=== PATIENT | male | born 1970 | race Caucasian/White ===

== ENCOUNTER 2017-03-10 21:42 | Emergency (ER) | payer BC ==
[2017-03-10 21:51] VITALS: BP 119/67
[2017-03-10] MEDS ORDERED: diPHENhydraMINE PO* 50 MG PO ONE (21:53)
[2017-03-10] MEDS ORDERED: predniSONE TAB* 20 MG PO ONE (21:53)
--- NOTE | 2017-03-10 21:53 | UC ---
Skin Complaint HPI - HPI Summary HPI Summary: Bee sting right forearm--24 hours of swelling hand and forearm,very itchy - History of Current Complaint Chief Complaint: UCAllergicReaction Time Seen by Provider: 03/10/17 21:46 Stated Complaint: BEE STING Hx Obtained From: Patient Onset/Duration: Sudden Onset, Lasting Days - 1 Skin Exposure Onset/Duration: Days Ago - 1 Timing: Constant Onset Severity: Moderate Current Severity: Moderate Location: Discrete - distal forearm Character: Swelling, Pruritus Aggravating Factor(s): Nothing Alleviating Factor(s): Nothing Associated Signs & Symptoms: Positive: Negative Related History: Insect Bite/Sting - Allergy/Home Medications Allergies/Adverse Reactions: Allergies Allergy/AdvReac Type Severity Reaction Status Date / Time Penicillins Allergy Unknown Unknown Verified 03/10/17 21:51 Reaction Details Review of Systems Constitutional: Negative Skin: Other - swollen hand and distal forearm (R) Eyes: Negative ENT: Negative Respiratory: Negative Cardiovascular: Negative Gastrointestinal: Negative Genitourinary: Negative Motor: Negative Neurovascular: Negative Musculoskeletal: Negative Neurological: Negative Psychological: Negative Is Patient Immunocompromised?: No All Other Systems Reviewed And Are Negative: Yes PMH/Surg Hx/FS Hx/Imm Hx Previously Healthy: Yes - Surgical History Surgical History: Yes Surgery Procedure, Year, and Place: HERNIA REPAIR - Family History Known Family History: Positive: None - Social History Occupation: Employed Full-time Lives: With Family Alcohol Use: Occasionally Alcohol Amount: 6-PACK A WEEK Substance Use Type: None Smoking Status (MU): Never Smoked Tobacco Physical Exam Triage Information Reviewed: Yes Appearance: Well-Appearing, No Pain Distress, Well-Nourished Vital Signs: Initial Vital Signs Temp 97.8 F 03/10/17 21:46 Pulse 74 03/10/17 21:46 Resp 16 03/10/17 21:46 BP 119/67 03/10/17 21:46 Vital Signs Reviewed: Yes Eye Exam: Normal Eyes: Positive: Conjunctiva Clear ENT Exam: Normal ENT: Positive: Normal ENT inspection, Hearing grossly normal. Negative: Nasal congestion, Nasal drainage, Trismus, Muffled/hoarse voice Dental Exam: Normal Neck exam: Normal Neck: Positive: Supple, Nontender, No Lymphadenopathy Respiratory Exam: Normal Respiratory: Positive: Chest non-tender, No respiratory distress, No accessory muscle use Cardiovascular Exam: Normal Cardiovascular: Positive: Pulses Normal, Brisk Capillary Refill Musculoskeletal Exam: Normal Musculoskeletal: Positive: Strength Intact, ROM Intact, Edema @ - distal right arm and hand Neurological Exam: Normal Neurological: Positive: Alert, Muscle Tone Normal Psychological Exam: Normal Skin Exam: Normal Course/Dx - Course Course Of Treatment: Benadryl, prednisone, ice elevation, follow with pcp prn - Differential Diagnoses - Skin Complaint Differential Diagnoses: Angioedema, Cellulitis, Local Allergic Reaction - Diagnoses Provider Diagnoses: Local reaction to Bee Sting Discharge - Discharge Plan Condition: Stable Disposition: HOME Prescriptions: predniSONE TAB* [Deltasone TAB*] 50 mg PO DAILY #4 tab Patient Education Materials: Insect Bite or Sting (ED), Diphenhydramine (By mouth), Ice Pack Application (ED) Referrals: Samuel Campos CISCO ENGINEER [Primary Care Provider] - If Needed
== END 2017-03-10 22:07 | disposition home or self-care (01) ==
LOC: UCEAST 21:42
DX: T63.441A Toxic effect of venom of bees, accidental (unintentional), initial encounter (principal); M79.89 Other specified soft tissue disorders; L29.9 Pruritus, unspecified; Y92.9 Unspecified place or not applicable; Z88.0 Allergy status to penicillin
CPT/HCPCS: 99212; A9270-GY; G0463; J7512

== ENCOUNTER 2017-03-15 08:17 | Emergency (ER) | payer BC ==
[2017-03-15] MEDS ORDERED: Meclizine TAB* 12.5 MG PO ONE (08:59)
[2017-03-15] MEDS ORDERED: Ondansetron INJ* 2 MG/ML VIAL IV ONE (08:59)
[2017-03-15 09:23] LABS: Hematocrit 43 % (42-52); Hemoglobin 14.7 g/dl (14.0-18.0); Mean Corpuscular HGB Conc 34 g/dl (31-36); Mean Corpuscular Hemoglobin 33 pg (27-31); Mean Corpuscular Volume 95 fL (80-94); Mean Platelet Volume 9 um3 (7.4-10.4); Red Blood Count 4.53 10^6/ul (4.0-5.4); Red Cell Distribution Width 13 % (10.5-15); White Blood Count 8.1 10^3/ul (3.5-10.8)
[2017-03-15 09:35] LABS: Albumin 4.2 g/dL (3.2-5.2); BUN/Creatinine Ratio 18.6 (8-20); Calcium 9.2 mg/dL (8.6-10.3); EGFR African American 106.7 (>60); Globulin 2.4 g/dL (2-4); Magnesium 2.2 mg/dL (1.9-2.7); Potassium 3.8 mmol/L (3.5-5.0); Total Bilirubin 0.7 mg/dL (0.2-1.0); Total Protein 6.6 g/dL (6.4-8.9)
[2017-03-15 10:04] LABS: TSH (Thyroid Stimulating Horm) 1.7 mcIU/mL (0.34-5.60)
[2017-03-15] MEDS ORDERED: LORazepam INJ* 2 MG/ML 1 ML VIAL IV ONE (11:18)
--- NOTE | 2017-03-15 13:48 | RAD ---
Indication: Vertigo. Dizziness and nausea. Toxic exposure. Comparison: No relevant prior exams available on the [facility] for comparison. Technique: Noncontrast CT vertex of skull through foramen magnum. Report: The sulci, ventricles, and basal cisterns are normal for age. Conte matter white matter differentiation is preserved without evidence for edema. No intra or extra axial hemorrhage, mass, or fluid collection detected. Unremarkable visualized orbital contents. Unremarkable calvarium and skull base. Unremarkable scalp. The visualized paranasal sinuses and mastoid air spaces are clear. IMPRESSION: Negative unenhanced head CT.
--- NOTE | 2017-03-15 16:08 | RAD ---
Indication: Dizziness that started this morning. On prednisone subsequent to a bee sting. Comparison: CT of the same date Technique: ViewsIQa 1.5 Queenie AN199F with GEM suite. MRI brain without contrast. Report: Diffusion series is negative for acute or subacute ischemia. Susceptibility series is negative for stigmata of hemosiderin deposition to indicate previous hemorrhage. Unremarkable cerebral sulci, ventricles, and basal cisterns. Normal patterns of signal intensity throughout the cerebrum and posterior fossa. No intra or extra-axial lesions or fluid collections evident. Preserved major intracranial flow-voids. Unremarkable orbital contents. No calvarial or skull base lesion evident. Clear paranasal sinuses and mastoid air spaces. The membranous labyrinths appear unremarkable and grossly symmetric within limits of routine MRI. No suspicious scalp lesion evident. Mild signal artifact noted at the level of the RIGHT cheek superficial to the zygomatic arch. IMPRESSION: Negative unenhanced MRI of the brain.
--- NOTE | 2017-03-15 17:05 | ED ---
Kassy Iqbal Thomas, scribed for Srinivas Gomez MD on 03/15/17 at 0849 . Dizziness - HPI Summary HPI Summary: The pt is a 46 y/o M presenting to the ED c/o dizziness that began this AM at around 07:00. The dizziness is constant. The dizziness is aggravated by moving. It is alleviated by nothing. Pt additionally c/o nausea. Pt denies tinnitus. The patient was moving some 7 dust pesticide this AM. The patient is currently on a course of prednisone for an allergic reaction to a bee sting five days ago. PMHx: previously healthy. PSHx: hernia repair. SHx: no smoking, occasional alcohol, no illicit drug use. FHx: DM, HTN. - History Of Current Complaint Chief Complaint: EDDizziness Stated Complaint: DIZZY Time Seen by Provider: 03/15/17 08:41 Hx Obtained From: Patient Onset/Duration: Still Present - onset today at 07:00 Timing: Constant Aggravating Factor(s): Other - Movement Alleviating Factor(s): Nothing Associated Signs And Symptoms: Positive: Nausea. Negative: Tinnitus - Allergies/Home Medications Allergies/Adverse Reactions: Allergies Allergy/AdvReac Type Severity Reaction Status Date / Time Penicillins Allergy Unknown Unknown Verified 03/15/17 08:32 Reaction Details PMH/Surg Hx/FS Hx/Imm Hx Previously Healthy: No Endocrine/Hematology History: Denies: Hx Bone Marrow Disease, Hx Diabetes, Hx Sickle Cell Disease, Hx Thyroid Disease, Hx Anemia Cardiovascular History: Denies: Hx Congestive Heart Failure, Hx Coronary Artery Disease, Hx Hypertension, Hx Pacemaker/ICD, Hx Peripheral Vascular Disease, Hx Valvular Heart Disease, Other Cardiovascular Problems/Disorders Respiratory History: Denies: Hx Asthma, Hx Sleep Apnea - evaluation for 05/2013-CAME BACK NEGATIVE, Other Respiratory Problems/Disorders GI History: Denies: Hx Cirrhosis, Hx Crohn's Disease, Hx Gastroesophageal Reflux Disease , Hx Irritable Bowel, Other GI Disorders History: Denies: Hx Kidney Infection, Hx Kidney Stones, Hx Renal Disease, Other Problems/Disorders Musculoskeletal History: Reports: Hx Back Problems Denies: Hx Arthritis, Hx Bursitis, Hx Tendonitis Sensory History: Denies: Hx Contacts or Glasses, Hx Hearing Aid Opthamlomology History: Denies: Hx Contacts or Glasses Neurological History: Denies: Hx Headaches, Hx Migraine, Hx Nerve Disease, Hx Seizures, Other Neuro Impairments/Disorders Psychiatric History: Denies: Hx Anxiety, Hx Depression, Hx Panic Disorder - Surgical History Surgery Procedure, Year, and Place: HERNIA REPAIR Infectious Disease History: No Infectious Disease History: Denies: Hx Hepatitis, Traveled Outside the [place] in Last 30 Days - Family History Known Family History: Positive: Hypertension, Diabetes - Social History Alcohol Use: Occasionally Alcohol Amount: 6-PACK A WEEK Substance Use Type: Reports: None Smoking Status (MU): Never Smoked Tobacco Review of Systems Negative: Fever Negative: Other - NEGATIVE: tinnitus Positive: Nausea Neurological: Other - Dizziness All Other Systems Reviewed And Are Negative: Yes Physical Exam Triage Information Reviewed: Yes Vital Signs On Initial Exam: Initial Vitals Temp Pulse Resp BP Pulse Ox 97.0 F 57 20 160/115 98 03/15/17 08:19 03/15/17 08:19 03/15/17 08:19 03/15/17 08:19 03/15/17 08:19 Vital Signs Reviewed: Yes Appearance: Positive: Well-Appearing, No Pain Distress, Obese Skin: Positive: Warm, Skin Color Reflects Adequate Perfusion, Dry Head/Face: Positive: Normal Head/Face Inspection Eyes: Positive: Other: - There is horizontal nystagmus to the right that fatigues. ENT: Positive: Normal ENT inspection Neck: Positive: Supple, Nontender Respiratory/Lung Sounds: Positive: Clear to Auscultation, Breath Sounds Present Cardiovascular: Positive: RRR Abdomen Description: Positive: Nontender, Soft Bowel Sounds: Positive: Present Musculoskeletal: Positive: Normal Neurological: Positive: Normal Psychiatric: Positive: Normal, Affect/Mood Appropriate - Ramu Coma Scale Coma Scale Total: 15 Diagnostics - Vital Signs Vital Signs Temp Pulse Resp BP Pulse Ox 03/15/17 08:34 53 13 100 03/15/17 08:33 13 03/15/17 08:32 156/102 03/15/17 08:19 97.0 F 57 20 160/115 98 - Laboratory Lab Results: Lab Results 03/15/17 03/15/17 03/15/17 Range/Units 09:05 09:05 09:05 WBC 8.1 (3.5-10.8) 10^3/ul RBC 4.53 (4.0-5.4) 10^6/ul Hgb 14.7 (14.0-18.0) g/dl Hct 43 (42-52) % MCV 95 H (80-94) fL MCH 33 H (27-31) pg MCHC 34 (31-36) g/dl RDW 13 (10.5-15) % Plt Count 162 (150-450) 10^3/ul MPV 9 (7.4-10.4) um3 Neut % (Auto) 57.0 (38-83) % Lymph % (Auto) 31.2 (25-47) % Clark % (Auto) 10.0 H (1-9) % Eos % (Auto) 1.3 (0-6) % Baso % (Auto) 0.5 (0-2) % Absolute Neuts (auto) 4.6 (1.5-7.7) 10^3/ul Absolute Lymphs (auto) 2.5 (1.0-4.8) 10^3/ul Absolute Monos (auto) 0.8 (0-0.8) 10^3/ul Absolute Eos (auto) 0.1 (0-0.6) 10^3/ul Absolute Basos (auto) 0 (0-0.2) 10^3/ul Absolute Nucleated RBC 0 10^3/ul Nucleated RBC % 0 Sodium 136 (133-145) mmol/L Potassium 3.8 (3.5-5.0) mmol/L Chloride 102 (101-111) mmol/L Carbon Dioxide 26 (22-32) mmol/L Anion Gap 8 (2-11) mmol/L BUN 18 (6-24) mg/dL Creatinine 0.97 (0.67-1.17) mg/dL Est GFR ( Amer) 106.7 (>60) Est GFR (Non-Af Amer) 83.0 (>60) BUN/Creatinine Ratio 18.6 (8-20) Glucose 83 (70-100) mg/dL Lactic Acid 2.1 H* (0.5-2.0) mmol/L Calcium 9.2 (8.6-10.3) mg/dL Magnesium 2.2 (1.9-2.7) mg/dL Total Bilirubin 0.70 (0.2-1.0) mg/dL AST 16 (13-39) U/L ALT 32 (7-52) U/L Alkaline Phosphatase 47 (34-104) U/L Total Protein 6.6 (6.4-8.9) g/dL Albumin 4.2 (3.2-5.2) g/dL Globulin 2.4 (2-4) g/dL Albumin/Globulin Ratio 1.8 (1-3) TSH 1.70 (0.34-5.60) mcIU/mL Result Diagrams: 03/15/17 09:05 03/15/17 09:05 Lab Statement: Any lab studies that have been ordered have been reviewed, and results considered in the medical decision making process. - CT CT Brain CT Interpretation: No Acute Changes - Negative unenhanced head CT. ED physician has reviewed this report and agrees. CT Interpretation Completed By: Radiologist - EKG 09:16 Cardiac Rate: Bradycardia - 51 BPM EKG Rhythm: Sinus Bradycardia EKG Interpretation: ST elevation, probable early repolarization pattern. - Additional Comments Diagnostic Additional Comments: MRI Brain w/o. Interpreted by radiologist. Impression: negative unenhanced MRI of the head. ED physician has read this report and agrees. Dizzy Course/Dx - Course Course Of Treatment: Mr. Roldan came in with vertiginous symptoms that started about 0700. He had some fatiguing nystagmus to the right but was too symptomatic with vertigo and N/V to perform a [place]. He was given zofran and then meclizine with some improvement but not a lot. He was then given ativan and got greater relief. At that point, his [place] was negative for eliciting symptoms or nystagmus and he had not nystagmus to the right. His gate , however, was very unsteady so aa CT was obtained and negative. I spoke with Dr. Carlos who recommended MRI. That was also negative and I will treat him symptomatically. I don't think this is related to Sevin exposure or prednisone. - Diagnoses Provider Diagnoses: Peripheral vertigo - Provider Notifications Discussed Care Of Patient With: Vic Carlos Time Discussed With Above Provider: 14:58 Instructed by Provider To: Other - I consulted with Dr. Carlos, neurologist, who recommended MR imaging. Discharge - Discharge Plan Condition: Stable Disposition: HOME Prescriptions: Meclizine TAB* [Antivert 12.5 TAB*] 25 mg PO TID PRN #20 tab PRN Reason: Dizziness Patient Education Materials: Vertigo (ED) Referrals: Storm,Shawnti R, EMBEDDED PROCESSOR [Primary Care Provider] - 3 Days Additional Instructions: Follow up with Dr. Campos in 3-4 days. Return to the emergency department for any new or worsening symptoms. The documentation as recorded by the Kassy goncalves Thomas accurately reflects the service I personally performed and the decisions made by me, Srinivas Gomez MD.
[2017-03-15 17:09] VITALS: BP 142/98
== END 2017-03-15 17:18 | disposition home or self-care (01) ==
LOC: ED 08:17
DX: H81.399 Other peripheral vertigo, unspecified ear (principal); R42 Dizziness and giddiness; R11.0 Nausea
CPT/HCPCS: 36415; 70450; 70551; 80053; 83605; 83735; 84443; 85025; 93005; 96374; 96375; 99283; A9270-GY; J2060; J2405

== ENCOUNTER 2018-03-09 16:26 | Emergency (ER) | payer BC, OTHER ==
[2018-03-09] MEDS ORDERED: Morphine INJ* 10 MG/ML 1 ML CARPUJECT IV ONE (16:43)
[2018-03-09] MEDS ORDERED: Ondansetron INJ* 2 MG/ML VIAL IV ONE (16:43)
[2018-03-09] MEDS ORDERED: NS 0.9% 1000 ML* 1,000 ML IV ONE (16:43)
[2018-03-09] MEDS ORDERED: Morphine INJ* 4 MG/ML 1 ML SYRINGE (NEW SYRINGE VERSION) ONE (16:49)
[2018-03-09] MEDS: Morphine INJ* 4 MG/ML 1 ML SYRINGE (NEW SYRINGE VERSION) IV ONE ×2 (16:54→17:28)
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
[2018-03-09] MEDS ORDERED: Morphine INJ* 2 MG/ML 1 ML SYRINGE (TWO MG - NEW SYRINGE VERSION) IV ONE (17:27)
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
[2018-03-09] MEDS ORDERED: fentaNYL* 50 MCG/ML 2 ML VIAL (100 MCG VIAL) IV SLOW PU PRN (17:40)
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
[2018-03-09] MEDS ORDERED: Orphenadrine Citrate IV* 30 MG/ML 2 ML VIAL IV ONE (17:50)
[2018-03-09 17:59] LABS: ABS Basophils 0 10^3/ul (0-0.2); ABS Eosinophils 0.1 10^3/ul (0-0.6); ABS Lymphocytes 1.1 10^3/ul (1.0-4.8); ABS Monocytes 0.6 10^3/ul (0-0.8); ABS Neutrophils 6.6 10^3/ul (1.5-7.7); ABS Nucleated RBC 0 10^3/ul; Eosinophil % 1.4 % (0-6); Hematocrit 40 % (42-52); Mean Corpuscular HGB Conc 35 g/dl (31-36); Mean Corpuscular Hemoglobin 33 pg (27-31); Mean Corpuscular Volume 94 fL (80-94); Mean Platelet Volume 8.5 um3 (7.4-10.4); Nucleated Red Blood Cells % 0; Platelet Count 168 10^3/ul (150-450); Red Blood Count 4.28 10^6/ul (4.00-5.40); Red Cell Distribution Width 12 % (10.5-15); White Blood Count 8.5 10^3/ul (3.5-10.8)
[2018-03-09 18:15] LABS: EGFR Non-African American 76.2 (>60)
[2018-03-09] MEDS ORDERED: fentaNYL* 50 MCG/ML 2 ML VIAL (100 MCG VIAL) IV SLOW PU ONE (18:16)
[2018-03-09] MEDS ORDERED: Iohexol 300* (CONTRAST) 10 ML SDV IV ONE (18:27)
[2018-03-09 19:09] VITALS: BP 136/90
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
== END 2018-03-09 19:08 | disposition home or self-care (01) ==
LOC: ED 16:26
DX: S49.91XA Unspecified injury of right shoulder and upper arm, initial encounter (principal); V49.9XXA Car occupant (driver) (passenger) injured in unspecified traffic accident, initial encounter; Y92.9 Unspecified place or not applicable; S42.401A Unspecified fracture of lower end of right humerus, initial encounter for closed fracture
CPT/HCPCS: 36415; 71260; 80053; 80320; 82550; 83605; 85025; 86850; 86900; 86901; 93005; 96374; 96375; 99282; G0480; J2270; J2360; J2405; J3010; Q9967

== ENCOUNTER 2018-12-08 15:32 | Emergency (ER) | payer BC, OTHER ==
[2018-12-08 16:42] LABS: ABS Eosinophils 0.4 10^3/ul (0-0.6); ABS Monocytes 0.5 10^3/ul (0-0.8); Eosinophil % 8.8 %; Hematocrit 41 % (42-52); Hemoglobin 14.3 g/dL (14.0-18.0); Lymphocyte % 40.2 %; Mean Corpuscular HGB Conc 35 g/dL (31-36); Mean Corpuscular Hemoglobin 33 pg (27-31); Mean Corpuscular Volume 95 fL (80-94); Mean Platelet Volume 8.3 fL (7.4-10.4); Nucleated Red Blood Cells % 0.1; Platelet Count 171 10^3/uL (150-450); Red Blood Count 4.34 10^6 /uL (4.18-5.48); Red Cell Distribution Width 13 % (10-15); White Blood Count 4.9 10^3/uL (3.5-10.8)
[2018-12-08 16:47] LABS: INR 0.97 (0.82-1.09)
[2018-12-08 16:59] LABS: Albumin 4.5 g/dL (3.2-5.2); Albumin/Globulin Ratio 1.9 (1-3); BUN/Creatinine Ratio 13.1 (8-20); Calcium 9.4 mg/dL (8.6-10.3); EGFR African American 76.4 (>60); EGFR Non-African American 63.1 (>60); Globulin 2.4 g/dL (2-4); Potassium 4.1 mmol/L (3.5-5.0); Total Bilirubin 0.6 mg/dL (0.2-1.0); Total Protein 6.9 g/dL (6.4-8.9)
[2018-12-08] MEDS ORDERED: NS 0.9% 1000 ML** 1,000 ML IV ONE (18:34)
[2018-12-08] MEDS ORDERED: Ondansetron INJ* 2 MG/ML VIAL IV ONE (18:35)
[2018-12-08] MEDS ORDERED: Morphine 4 MG/ML VIAL (1 ml) 4 MG/ML VIAL IV ONE (18:35)
--- NOTE | 2018-12-08 20:18 | ED ---
HPI Chest Pain - HPI Summary HPI Summary: Patient complains of sudden onset left sided chest pain radiating to left arm, diaphoresis, nausea, generalized weakness starting this afternoon while sitting at a graduation. States history of same with last prior episode over 1 year ago. Has been evaluated with stress test 2 with last test over 2 years ago. 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 Denies SOB with today's episode of chest pain. Denies fever, cough, sore throat, sob N/V/D, abdominal pain, change in urine, change in BM, penile or testicular symptoms. PERC negative. Medical history is vertical. Denies family history cardiac disease. Negative smoker. Denies recreational drug use. - History of Current Complaint Chief Complaint: EDChestPainROMI Time Seen by Provider: 12/08/18 17:31 Hx Obtained From: Patient Onset/Duration: Started Hours Ago Timing: Constant Initial Severity: Moderate Current Severity: Moderate Pain Intensity: 4 Pain Scale Used: 0-10 Numeric Chest Pain Location: Left Anterior Chest Pain Radiates: Yes Chest Pain Radiates To:: Arm Character: Dull/Aching Aggravating Factor(s): Nothing Alleviating Factor(s): Nothing - Allergy/Home Medications Allergies/Adverse Reactions: Allergies Allergy/AdvReac Type Severity Reaction Status Date / Time Penicillins Allergy Unknown Unknown Verified 03/09/18 17:42 Reaction Details PMH/Surg Hx/FS Hx/Imm Hx Endocrine/Hematology History: Denies: Hx Bone Marrow Disease, Hx Diabetes, Hx Sickle Cell Disease, Hx Thyroid Disease, Hx Anemia Cardiovascular History: Denies: Hx Congestive Heart Failure, Hx Coronary Artery Disease, Hx Hypertension, Hx Pacemaker/ICD, Hx Peripheral Vascular Disease, Hx Valvular Heart Disease, Other Cardiovascular Problems/Disorders Respiratory History: Denies: Hx Asthma, Hx Sleep Apnea - evaluation for 05/2013-CAME BACK NEGATIVE, Other Respiratory Problems/Disorders GI History: Denies: Hx Cirrhosis, Hx Crohn's Disease, Hx Gastroesophageal Reflux Disease , Hx Irritable Bowel, Other GI Disorders History: Denies: Hx Kidney Infection, Hx Kidney Stones, Hx Renal Disease, Other Problems/Disorders Musculoskeletal History: Reports: Hx Back Problems Denies: Hx Arthritis, Hx Bursitis, Hx Tendonitis Sensory History: Denies: Hx Contacts or Glasses, Hx Hearing Aid Opthamlomology History: Denies: Hx Contacts or Glasses Neurological History: Denies: Hx Headaches, Hx Migraine, Hx Nerve Disease, Hx Seizures, Other Neuro Impairments/Disorders Psychiatric History: Denies: Hx Anxiety, Hx Depression, Hx Panic Disorder - Surgical History Surgery Procedure, Year, and Place: HERNIA REPAIR Infectious Disease History: No Infectious Disease History: Denies: Hx Hepatitis, Traveled Outside the [place] in Last 30 Days - Family History Known Family History: Positive: Hypertension, Diabetes - Social History Alcohol Use: Occasionally Alcohol Amount: 6-PACK A WEEK Hx Substance Use: No Substance Use Type: Reports: None Hx Tobacco Use: No Smoking Status (MU): Never Smoked Tobacco Review of Systems Constitutional: Negative Eyes: Negative ENT: Negative Positive: Chest Pain Respiratory: Negative Gastrointestinal: Negative Genitourinary: Negative Musculoskeletal: Negative Skin: Negative Neurological: Negative Psychological: Normal All Other Systems Reviewed And Are Negative: Yes Physical Exam - Summary Physical Exam Summary: Chest pain not reproducible. Lung sounds clear to auscultation bilaterally. RRR. Abdomen soft nontender. No swelling, erythema, tenderness to bilateral lower extremities. Bilateral calfs soft nontender.. Triage Information Reviewed: Yes Vital Signs On Initial Exam: Initial Vitals Temp Pulse Resp BP Pulse Ox 97.4 F 72 18 123/73 95 12/08/18 15:50 12/08/18 15:50 12/08/18 15:50 12/08/18 15:50 12/08/18 15:50 Vital Signs Reviewed: Yes Appearance: Positive: Well-Appearing Skin: Positive: Warm Head/Face: Positive: Normal Head/Face Inspection Eyes: Positive: Normal ENT: Positive: Normal ENT inspection Neck: Positive: Supple Respiratory/Lung Sounds: Positive: Clear to Auscultation Cardiovascular: Positive: Normal Abdomen Description: Positive: Nontender Musculoskeletal: Positive: Normal Neurological: Positive: Normal AVPU Assessment: Alert - [place] Coma Scale Best Eye Response: 4 - Spontaneous Best Motor Response: 6 - Obeys Commands Best Verbal Response: 5 - Oriented Coma Scale Total: 15 Diagnostics - Vital Signs Vital Signs Temp Pulse Resp BP Pulse Ox 12/08/18 19:26 53 11 124/78 98 12/08/18 19:04 16 12/08/18 19:00 57 12 96 12/08/18 18:56 57 12 119/79 96 12/08/18 18:26 54 11 120/82 97 12/08/18 18:01 97.8 F 57 16 124/73 98 12/08/18 18:00 62 19 98 12/08/18 17:56 59 14 124/73 98 12/08/18 17:55 11 12/08/18 15:50 97.4 F 72 18 123/73 95 - Laboratory Lab Results: Lab Results 12/08/18 12/08/18 12/08/18 Range/Units 16:35 16:35 16:35 WBC 4.9 (3.5-10.8) 10^3/uL RBC 4.34 (4.18-5.48) 10^6 /uL Hgb 14.3 (14.0-18.0) g/dL Hct 41 L (42-52) % MCV 95 H (80-94) fL MCH 33 H (27-31) pg MCHC 35 (31-36) g/dL RDW 13 (10-15) % Plt Count 171 (150-450) 10^3/uL MPV 8.3 (7.4-10.4) fL Neut % (Auto) 40.1 % Lymph % (Auto) 40.2 % [place] % (Auto) 10.2 % Eos % (Auto) 8.8 % Baso % (Auto) 0.7 % Absolute Neuts (auto) 2.0 (1.5-7.7) 10^3/ul Absolute Lymphs (auto) 2.0 (1.0-4.8) 10^3/ul Absolute Monos (auto) 0.5 (0-0.8) 10^3/ul Absolute Eos (auto) 0.4 (0-0.6) 10^3/ul Absolute Basos (auto) 0.0 (0-0.2) 10^3/ul Absolute Nucleated RBC 0.0 10^3/ul Nucleated RBC % 0.1 INR (Anticoag Therapy) 0.97 (0.82-1.09) Sodium 140 (135-145) mmol/L Potassium 4.1 (3.5-5.0) mmol/L Chloride 105 (101-111) mmol/L Carbon Dioxide 31 (22-32) mmol/L Anion Gap 4 (2-11) mmol/L BUN 16 (6-24) mg/dL Creatinine 1.22 H (0.67-1.17) mg/dL Est GFR ( Amer) 76.4 (>60) Est GFR (Non-Af Amer) 63.1 (>60) BUN/Creatinine Ratio 13.1 (8-20) Glucose 104 H (70-100) mg/dL Calcium 9.4 (8.6-10.3) mg/dL Total Bilirubin 0.60 (0.2-1.0) mg/dL AST 17 (13-39) U/L ALT 22 (7-52) U/L Alkaline Phosphatase 56 (34-104) U/L Troponin I 0.00 (<0.04) ng/mL Total Protein 6.9 (6.4-8.9) g/dL Albumin 4.5 (3.2-5.2) g/dL Globulin 2.4 (2-4) g/dL Albumin/Globulin Ratio 1.9 (1-3) 12/08/18 Range/Units 19:45 WBC (3.5-10.8) 10^3/uL RBC (4.18-5.48) 10^6 /uL Hgb (14.0-18.0) g/dL Hct (42-52) % MCV (80-94) fL MCH (27-31) pg MCHC (31-36) g/dL RDW (10-15) % Plt Count (150-450) 10^3/uL MPV (7.4-10.4) fL Neut % (Auto) % Lymph % (Auto) % [place] % (Auto) % Eos % (Auto) % Baso % (Auto) % Absolute Neuts (auto) (1.5-7.7) 10^3/ul Absolute Lymphs (auto) (1.0-4.8) 10^3/ul Absolute Monos (auto) (0-0.8) 10^3/ul Absolute Eos (auto) (0-0.6) 10^3/ul Absolute Basos (auto) (0-0.2) 10^3/ul Absolute Nucleated RBC 10^3/ul Nucleated RBC % INR (Anticoag Therapy) (0.82-1.09) Sodium (135-145) mmol/L Potassium (3.5-5.0) mmol/L Chloride (101-111) mmol/L Carbon Dioxide (22-32) mmol/L Anion Gap (2-11) mmol/L BUN (6-24) mg/dL Creatinine (0.67-1.17) mg/dL Est GFR ( Amer) (>60) Est GFR (Non-Af Amer) (>60) BUN/Creatinine Ratio (8-20) Glucose (70-100) mg/dL Calcium (8.6-10.3) mg/dL Total Bilirubin (0.2-1.0) mg/dL AST (13-39) U/L ALT (7-52) U/L Alkaline Phosphatase (34-104) U/L Troponin I 0.00 (<0.04) ng/mL Total Protein (6.4-8.9) g/dL Albumin (3.2-5.2) g/dL Globulin (2-4) g/dL Albumin/Globulin Ratio (1-3) Result Diagrams: 12/08/18 16:35 12/08/18 16:35 Lab Statement: Any lab studies that have been ordered have been reviewed, and results considered in the medical decision making process. Chest Pain Course/Dx - Course Course Of Treatment: Patient complains of sudden onset left sided chest pain radiating to left arm, diaphoresis, nausea, generalized weakness starting this afternoon while sitting at a graduation. States history of same with last prior episode over 1 year ago. Has been evaluated with stress test 2 with last test over 2 years ago. 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 Denies SOB with today's episode of chest pain. Denies fever, cough, sore throat, sob N/V/D, abdominal pain, change in urine, change in BM, penile or testicular symptoms. PERC negative. Medical history is vertical. Denies family history cardiac disease. Negative smoker. Denies recreational drug use. Vital signs within normal limits. Labs unremarkable. Chest x-ray negative. EKG sinus rhythm. - Diagnoses Provider Diagnoses: Atypical chest pain Discharge - Sign-Out/Discharge Documenting (check all that apply): Patient Departure Patient Received Moderate/Deep Sedation with Procedure: No - Discharge Plan Condition: Stable Disposition: HOME Patient Education Materials: Chest Pain (ED) Referrals: Samuel Campos NP [Primary Care Provider] - Zofia Santiago MD [Medical Doctor] - Additional Instructions: Follow-up with your sanitarian or with sanitarian Dr. Santiago for further evaluation of chest pain. Return to the ED for any new or worsening symptoms. - Billing Disposition and Condition Condition: STABLE Disposition: Home
[2018-12-08 20:59] VITALS: BP 123/82
== END 2018-12-08 20:58 | disposition home or self-care (01) ==
LOC: ED 15:32
DX: R07.89 Other chest pain (principal); Z88.0 Allergy status to penicillin
CPT/HCPCS: 36415; 71045; 80053; 84484; 85025; 85610; 93005; 96361; 96374; 96375; 99283; J2270; J2405